=== PATIENT | female | born 1995 | race Two or more races ===

== ENCOUNTER 2023-10-30 17:35 | Emergency (ER) | payer BC, OTHER ==
[2023-10-30 17:46] VITALS: BP 124/86; PULSE 82; RESP 20; TEMP 98.1; BMI 27.3
[2023-10-30] MEDS ORDERED: ACETAMINOPHEN INJECTION 100 ML IVPB ONE (18:18)
[2023-10-30 18:33] LABS: BASO % 0.5 % (0-2.0); EOS % 0.9 % (0-4.5); HEMOGLOBIN 12.9 GM/dL (10.7-15.3); LYMPH % 45.9 % (8-40); MCH 30.1 pg (25.7-33.7); MCHC 33.1 g/dl (32.0-36.0); MEAN CELL VOLUME 90.7 fl (80-96); MEAN PLT VOLUME 8.6 fl (7.5-11.1); MONO % 7.3 % (3.8-10.2); NEUT % 45.4 % (42.8-82.8); PLATELET COUNT 269 10^3/uL (134-434); RBC 4.29 M/mm3 (3.60-5.2); RDW 12.7 % (11.6-15.6); WHITE BLOOD COUNT 5.2 K/mm3 (4.0-10.0)
[2023-10-30 18:34] LABS: PH,URINE 6.5 (5.0-8.0); URINE APPEARANCE CLEAR; URINE BILIRUBIN NEGATIVE (NEGATIVE); URINE COLOR YELLOW; URINE GLUCOSE (UA) NEGATIVE (NEGATIVE); URINE KETONE NEGATIVE (NEGATIVE); URINE LEUK ESTERASE NEGATIVE (NEGATIVE); URINE NITRITE NEGATIVE (NEGATIVE); URINE PROTEIN NEGATIVE (NEGATIVE); URINE UROBILINOGEN 0.2 mg/dL (0.2-1.0)
[2023-10-30] MEDS: SODIUM CHLORIDE 0.9% 500 ML INFUS.BAG IV ONE (18:41)
[2023-10-30] MEDS: ACETAMINOPHEN 1000 MG/100 ML BAG IVPB ONE (18:41)
[2023-10-30 18:54] LABS: CHLORIDE 107 mmol/L (98-107); POTASSIUM 4.2 mmol/L (3.5-5.1); SODIUM 138 mmol/L (136-145)
[2023-10-30 18:55] LABS: ALBUMIN 3.9 g/dl (3.4-5.0)
[2023-10-30 18:56] LABS: ANION GAP 9 mmol/L (4-13); CALCIUM 9.1 mg/dL (8.5-10.1); CO2 22 mmol/L (21-32); GLUCOSE,RANDOM 77 mg/dL (74-106); MAGNESIUM 2.2 mg/dL (1.8-2.4)
[2023-10-30 18:59] LABS: CREATININE 0.8 mg/dL (0.55-1.3); SGPT/ALT 33 U/L (13-61)
[2023-10-30 19:00] LABS: SGOT/AST 22 U/L (15-37)
[2023-10-30 19:01] LABS: BILIRUBIN,TOTAL 0.4 mg/dL (0.2-1); TOT PROT 7.7 g/dl (6.4-8.2)
[2023-10-30 19:02] LABS: ALK PHOS 60 U/L (45-117)
[2023-10-30 19:04] LABS: HCG,QUALITATIVE URINE NEGATIVE
== END 2023-10-30 19:28 | disposition home or self-care (01) ==
LOC: JERFT 17:35
PROC: 3E033NZ Introduction of Analgesics, Hypnotics, Sedatives into Peripheral Vein, Percutaneous Approach (ICD-10-PCS; principal; 2023-10-30)
DX: R20.2 Paresthesia of skin (principal); R20.0 Anesthesia of skin; M54.2 Cervicalgia
CPT/HCPCS: 36415; 71046-TC-FY; 80053; 81003; 82550; 83735; 84443; 84484; 84703; 85025; 93005; 93010; 99285-25; J0131